=== PATIENT | female | born 1995 | race Caucasian/White ===

== ENCOUNTER 2025-02-12 01:49 | Emergency (ER) | payer MEDICAID ==
[~2025-02-12] VITALS: Ht 154.9 cm; Wt 91.0 kg
[2025-02-12 02:16] VITALS: TEMP 36.9; O2SAT 98
[2025-02-12 02:17] VITALS: O2SAT 99
[2025-02-12] MEDS ORDERED: IBUP-2029 MT (03:27)
[2025-02-12 03:36] VITALS: BP 111/73; PULSE 79; RESP 18
[2025-02-12] MEDS: IBUPROFEN 600MG TABLET PO ONE (03:36)
== END 2025-02-12 04:02 | disposition home or self-care (01) ==
LOC: ER 01:49
DX: S90.01XA Contusion of right ankle, initial encounter (principal); Z98.890 Other specified postprocedural states; X50.1XXA Overexertion from prolonged static or awkward postures, initial encounter; Y93.89 Activity, other specified; Y92.89 Other specified places as the place of occurrence of the external cause; Y99.8 Other external cause status
CPT/HCPCS: 29515; 73610; 99283